=== PATIENT | male | born 1960 | race African-American/Black ===

== ENCOUNTER 2021-12-04 13:36 | Inpatient (IN) | payer OTHER ==
[2021-12-04 15:25] VITALS: BMI 26.9
[2021-12-04] MEDS ORDERED: NICOTINE 10 MG CARTRIDGE (INHALER) IH PRN (15:39)
[2021-12-04] MEDS ORDERED: IBUPROFEN 600 MG TABLET (FP) PO PRN (15:39)
[2021-12-04] MEDS ORDERED: DICYCLOMINE HCL 10 MG CAPSULE PO PRN (15:39)
[2021-12-04] MEDS ORDERED: ACETAMINOPHEN 325 MG TABLET (FP) PO PRN ×2 (15:39)
[2021-12-04] MEDS ORDERED: ONDANSETRON *ODT* 4 MG TABLET SL PRN (15:39)
[2021-12-04] MEDS ORDERED: METHOCARBAMOL 500 MG TABLET PO PRN (15:39)
[2021-12-04] MEDS ORDERED: MAG HYDROX/AL HYDROX/SIMETH 30 ML UNIT-DOSE CUP PO PRN (15:39)
[2021-12-04] MEDS ORDERED: NALOXONE HCL (KLOXXADO) 8 MG SPRAY NS PRN (15:39)
[2021-12-04] MEDS ORDERED: MAGNESIUM HYDROX 2400MG/30ML ORAL SUSPENSION 30 ML CUP PO PRN (15:39)
[2021-12-04] MEDS ORDERED: IBUPROFEN 400 MG TABLET (FP) PO PRN (15:39)
[2021-12-04] MEDS ORDERED: BENZOCAINE/MENTHOL (CHLORASEPTIC ) LOZENGE MM PRN (15:39)
[2021-12-04] MEDS ORDERED: MAGNESIUM CITRATE 300 ML BOTTLE PO PRN (15:39)
[2021-12-04] MEDS ORDERED: LOPERAMIDE HCL 2 MG CAPSULE PO PRN (15:39)
[2021-12-04] MEDS ORDERED: BISMUTH SUBSALICYLATE 262 MG/15 ML BTL PO PRN (15:39)
[2021-12-04] MEDS: hydrOXYzine PAMOATE 25 MG CAPSULE (FP) PO SCH ×2 (18:29→22:20)
[2021-12-04] MEDS: THIAMINE HCL 100 MG TABLET (FP) PO SCH (22:20)
[2021-12-04] MEDS: MELATONIN 5 MG TABLETS PO SCH (22:20)
[2021-12-05] MEDS: hydrOXYzine PAMOATE 25 MG CAPSULE (FP) PO SCH ×5 (06:26→22:36)
[2021-12-05] MEDS ORDERED: PRENATAL VITAMINS W/ FOLIC ACID TABLET (FP) PO SCH (10:00)
[2021-12-05 10:30] LABS: HEMATOCRIT 37.2 % (35.4-49); HEMOGLOBIN 12.6 GM/dL (11.7-16.9); MCH 31.1 pg (25.7-33.7); MCHC 33.7 g/dl (32.0-35.9); MEAN CELL VOLUME 92.4 fl (80-96); MEAN PLT VOLUME 7.7 fl (7.5-11.1); PLATELET COUNT 212 10^3/uL (134-434); RBC 4.03 M/mm3 (4.00-5.60); RDW 13.3 % (11.9-15.9); WHITE BLOOD COUNT 3.5 K/mm3 (4.0-10.0)
[2021-12-05 10:34] LABS: CALCIUM 8.7 mg/dL (8.5-10.1)
[2021-12-05 10:35] LABS: ALBUMIN 3.2 g/dl (3.4-5.0); BLOOD UREA NITROGEN 12.6 mg/dL (7-18)
[2021-12-05 10:38] LABS: CREATININE 0.8 mg/dL (0.55-1.3)
[2021-12-05 10:40] LABS: BILIRUBIN,TOTAL 0.3 mg/dL (0.2-1); TOT PROT 5.7 g/dl (6.4-8.2)
[2021-12-05] MEDS: THIAMINE HCL 100 MG TABLET (FP) PO SCH (22:36)
[2021-12-05] MEDS: MELATONIN 5 MG TABLETS PO SCH (22:36)
[2021-12-06] MEDS: hydrOXYzine PAMOATE 25 MG CAPSULE (FP) PO SCH (06:13)
[2021-12-06 09:56] VITALS: BP 134/71; PULSE 60; TEMP 96
== END 2021-12-06 11:05 | disposition home or self-care (01) | DRG 773 ==
LOC: YASAS 13:36 → Y3N 17:55
PROVIDERS: ADMIT Allergy & Immunology; ATTEND Surgery
PROC: HZ2ZZZZ Detoxification Services for Substance Abuse Treatment (ICD-10-PCS; principal; 2021-12-04)
DX: F11.23 Opioid dependence with withdrawal (principal); Z72.0 Tobacco use; Z28.310 Unvaccinated for COVID-19; Z59.01 Sheltered homelessness
CPT/HCPCS: 36415; 80053; 85027; 86780; 93005; 93010; C9803-CS; U0003; U0005

== ENCOUNTER 2022-02-22 12:04 | Inpatient (IN) | payer OTHER ==
[2022-02-22 12:45] VITALS: RESP 18; BMI 26.9
[2022-02-22] MEDS ORDERED: guaiFENesin 200 MG/10 ML 10 ML UNIT-DOSE CUPS PO PRN (18:51)
[2022-02-22] MEDS ORDERED: NICOTINE 10 MG CARTRIDGE (INHALER) IH PRN (18:51)
[2022-02-22] MEDS ORDERED: MAGNESIUM HYDROX 2400MG/30ML ORAL SUSPENSION 30 ML CUP PO PRN (18:51)
[2022-02-22] MEDS ORDERED: LOPERAMIDE HCL 2 MG CAPSULE PO PRN (18:51)
[2022-02-22] MEDS ORDERED: IBUPROFEN 400 MG TABLET (FP) PO PRN (18:51)
[2022-02-22] MEDS ORDERED: ACETAMINOPHEN 325 MG TABLET (FP) PO PRN (18:51)
[2022-02-22] MEDS ORDERED: MAG HYDROX/AL HYDROX/SIMETH 30 ML UNIT-DOSE CUP PO PRN (18:51)
[2022-02-22] MEDS ORDERED: MAGNESIUM CITRATE 300 ML BOTTLE PO PRN (18:51)
[2022-02-22] MEDS ORDERED: P-EPHED 60MG/TRIPROLIDI 2.5MG TABLET PO PRN (18:51)
[2022-02-22] MEDS: MELATONIN 5 MG TABLETS PO SCH (23:03)
[2022-02-22] MEDS: PRENATAL VITAMINS W/ FOLIC ACID TABLET (FP) PO SCH (23:03)
[2022-02-22] MEDS: hydrOXYzine PAMOATE 25 MG CAPSULE (FP) PO SCH (23:03)
[2022-02-22] MEDS: THIAMINE HCL 100 MG TABLET (FP) PO SCH (23:03)
[2022-02-23] MEDS: hydrOXYzine PAMOATE 25 MG CAPSULE (FP) PO SCH (06:53)
[2022-02-23] MEDS ORDERED: methaDONE HCL 40 MG DISPERSABLE TABLET PO SCH (09:00)
[2022-02-23] MEDS: methaDONE 80 MG, methaDONE 10 MG PO SCH (10:46)
[2022-02-23] MEDS: NICOTINE 7 MG/24 HOURS TOPICAL PATCH TD SCH (10:46)
[2022-02-23] MEDS: PRENATAL VITAMINS W/ FOLIC ACID TABLET (FP) PO SCH (10:46)
[2022-02-23 12:19] LABS: URINE APPEARANCE CLEAR; URINE BILIRUBIN NEGATIVE (NEGATIVE); URINE COLOR YELLOW; URINE GLUCOSE (UA) NEGATIVE (NEGATIVE); URINE KETONE NEGATIVE (NEGATIVE); URINE LEUK ESTERASE NEGATIVE (NEGATIVE); URINE NITRITE NEGATIVE (NEGATIVE); URINE PROTEIN NEGATIVE (NEGATIVE)
[2022-02-23 12:26] LABS: HEMOGLOBIN 11.7 GM/dL (11.7-16.9); MCH 30.6 pg (25.7-33.7); MCHC 33.6 g/dl (32.0-35.9); MEAN CELL VOLUME 91.3 fl (80-96); MEAN PLT VOLUME 7.9 fl (7.5-11.1); PLATELET COUNT 236 10^3/uL (134-434); RBC 3.83 M/mm3 (4.00-5.60); RDW 13.9 % (11.9-15.9); WHITE BLOOD COUNT 3.5 K/mm3 (4.0-10.0)
[2022-02-23 12:57] LABS: CALCIUM 8.2 mg/dL (8.5-10.1)
[2022-02-23 12:58] LABS: BLOOD UREA NITROGEN 11.5 mg/dL (7-18)
[2022-02-23 12:59] LABS: BILIRUBIN,TOTAL 0.5 mg/dL (0.2-1); CREATININE 0.7 mg/dL (0.55-1.3); SYPHILIS W/ RPR CONF NON-REACTIVE (NONREACTIVE)
[2022-02-23 13:00] LABS: TOT PROT 5.3 g/dl (6.4-8.2)
[2022-02-23] MEDS: THIAMINE HCL 100 MG TABLET (FP) PO SCH (21:33)
[2022-02-23] MEDS: MELATONIN 5 MG TABLETS PO SCH (21:33)
[2022-02-24] MEDS: methaDONE 80 MG, methaDONE 10 MG PO SCH (06:32)
[2022-02-24] MEDS: PRENATAL VITAMINS W/ FOLIC ACID TABLET (FP) PO SCH (10:23)
[2022-02-24] MEDS: POTASSIUM CHLORIDE ORAL LIQUID 20 MEQ/15 ML PO SCH ×2 (10:23→21:22)
[2022-02-24] MEDS: NICOTINE 7 MG/24 HOURS TOPICAL PATCH TD SCH (10:23)
[2022-02-24] MEDS: MELATONIN 5 MG TABLETS PO SCH (21:22)
[2022-02-24] MEDS: THIAMINE HCL 100 MG TABLET (FP) PO SCH (21:22)
[2022-02-25] MEDS: methaDONE 80 MG, methaDONE 10 MG PO SCH (06:38)
[2022-02-25] MEDS: PRENATAL VITAMINS W/ FOLIC ACID TABLET (FP) PO SCH (10:07)
[2022-02-25] MEDS: NICOTINE 7 MG/24 HOURS TOPICAL PATCH TD SCH (10:07)
[2022-02-25] MEDS: POTASSIUM CHLORIDE ORAL LIQUID 20 MEQ/15 ML PO SCH (10:07)
[2022-02-25] MEDS: MELATONIN 5 MG TABLETS PO SCH (21:23)
[2022-02-25] MEDS: THIAMINE HCL 100 MG TABLET (FP) PO SCH (21:23)
[2022-02-26] MEDS: methaDONE 80 MG, methaDONE 10 MG PO SCH (06:28)
[2022-02-26] MEDS: PRENATAL VITAMINS W/ FOLIC ACID TABLET (FP) PO SCH (10:10)
[2022-02-26] MEDS: NICOTINE 7 MG/24 HOURS TOPICAL PATCH TD SCH (10:11)
[2022-02-26] MEDS: THIAMINE HCL 100 MG TABLET (FP) PO SCH (21:25)
[2022-02-26] MEDS: MELATONIN 5 MG TABLETS PO SCH (21:25)
[2022-02-27] MEDS: methaDONE 80 MG, methaDONE 10 MG PO SCH (06:33)
[2022-02-27] MEDS: PRENATAL VITAMINS W/ FOLIC ACID TABLET (FP) PO SCH (09:55)
[2022-02-27] MEDS: NICOTINE 7 MG/24 HOURS TOPICAL PATCH TD SCH (09:55)
[2022-02-27] MEDS: THIAMINE HCL 100 MG TABLET (FP) PO SCH (21:01)
[2022-02-27] MEDS: MELATONIN 5 MG TABLETS PO SCH (21:01)
[2022-02-28] MEDS: methaDONE 80 MG, methaDONE 10 MG PO SCH (06:24)
[2022-02-28] MEDS: PRENATAL VITAMINS W/ FOLIC ACID TABLET (FP) PO SCH (10:31)
[2022-02-28] MEDS: NICOTINE 7 MG/24 HOURS TOPICAL PATCH TD SCH (10:31)
[2022-02-28] MEDS: THIAMINE HCL 100 MG TABLET (FP) PO SCH (21:12)
[2022-02-28] MEDS: hydrOXYzine PAMOATE 25 MG CAPSULE (FP) PO PRN (21:12)
[2022-02-28] MEDS: MELATONIN 5 MG TABLETS PO SCH (21:12)
[2022-03-01] MEDS: methaDONE 80 MG, methaDONE 10 MG PO SCH (06:05)
[2022-03-01] MEDS: PRENATAL VITAMINS W/ FOLIC ACID TABLET (FP) PO SCH (09:53)
[2022-03-01] MEDS: NICOTINE 7 MG/24 HOURS TOPICAL PATCH TD SCH (09:53)
[2022-03-01] MEDS: MELATONIN 5 MG TABLETS PO SCH (21:15)
[2022-03-01] MEDS: THIAMINE HCL 100 MG TABLET (FP) PO SCH (21:15)
[2022-03-02] MEDS: methaDONE 80 MG, methaDONE 10 MG PO SCH (06:23)
[2022-03-02] MEDS: NICOTINE 7 MG/24 HOURS TOPICAL PATCH TD SCH (10:19)
[2022-03-02] MEDS: PRENATAL VITAMINS W/ FOLIC ACID TABLET (FP) PO SCH (10:19)
[2022-03-02] MEDS: hydrOXYzine PAMOATE 25 MG CAPSULE (FP) PO PRN (21:46)
[2022-03-02] MEDS: THIAMINE HCL 100 MG TABLET (FP) PO SCH (21:46)
[2022-03-02] MEDS: MELATONIN 5 MG TABLETS PO SCH (21:46)
[2022-03-03] MEDS: methaDONE 80 MG, methaDONE 10 MG PO SCH (06:21)
[2022-03-03] MEDS: NICOTINE 7 MG/24 HOURS TOPICAL PATCH TD SCH (09:44)
[2022-03-03] MEDS: PRENATAL VITAMINS W/ FOLIC ACID TABLET (FP) PO SCH (09:44)
[2022-03-03] MEDS ORDERED: CALAMINE 8% TOPICAL LOTION 177 ML BOTTLE TP PRN (11:27)
[2022-03-03] MEDS: MELATONIN 5 MG TABLETS PO SCH (21:04)
[2022-03-03] MEDS: hydrOXYzine PAMOATE 25 MG CAPSULE (FP) PO PRN (21:04)
[2022-03-03] MEDS: THIAMINE HCL 100 MG TABLET (FP) PO SCH (21:04)
[2022-03-04] MEDS: methaDONE 80 MG, methaDONE 10 MG PO SCH (06:11)
[2022-03-04] MEDS: PRENATAL VITAMINS W/ FOLIC ACID TABLET (FP) PO SCH (09:56)
[2022-03-04] MEDS: NICOTINE 7 MG/24 HOURS TOPICAL PATCH TD SCH (09:57)
[2022-03-04] MEDS: THIAMINE HCL 100 MG TABLET (FP) PO SCH (21:00)
[2022-03-04] MEDS: hydrOXYzine PAMOATE 25 MG CAPSULE (FP) PO PRN (21:00)
[2022-03-04] MEDS: MELATONIN 5 MG TABLETS PO SCH (21:00)
[2022-03-05] MEDS: methaDONE 80 MG, methaDONE 10 MG PO SCH (06:26)
[2022-03-05] MEDS ORDERED: BENZOYL PEROXIDE 5% 60 GM GEL..GRAM. TP ONE (08:01)
[2022-03-05] MEDS: NICOTINE 7 MG/24 HOURS TOPICAL PATCH TD SCH (10:44)
[2022-03-05] MEDS: PRENATAL VITAMINS W/ FOLIC ACID TABLET (FP) PO SCH (10:44)
[2022-03-05] MEDS: hydrOXYzine PAMOATE 25 MG CAPSULE (FP) PO PRN (21:13)
[2022-03-05] MEDS: MELATONIN 5 MG TABLETS PO SCH (21:13)
[2022-03-05] MEDS: THIAMINE HCL 100 MG TABLET (FP) PO SCH (21:13)
[2022-03-06] MEDS: methaDONE 80 MG, methaDONE 10 MG PO SCH (05:58)
[2022-03-06] MEDS: PRENATAL VITAMINS W/ FOLIC ACID TABLET (FP) PO SCH (10:34)
[2022-03-06] MEDS: NICOTINE 7 MG/24 HOURS TOPICAL PATCH TD SCH (10:35)
[2022-03-06] MEDS: MELATONIN 5 MG TABLETS PO SCH (21:14)
[2022-03-06] MEDS: THIAMINE HCL 100 MG TABLET (FP) PO SCH (21:15)
[2022-03-07] MEDS: methaDONE 80 MG, methaDONE 10 MG PO SCH (06:21)
[2022-03-07] MEDS: PRENATAL VITAMINS W/ FOLIC ACID TABLET (FP) PO SCH (09:48)
[2022-03-07] MEDS: NICOTINE 7 MG/24 HOURS TOPICAL PATCH TD SCH (11:02)
[2022-03-07] MEDS: THIAMINE HCL 100 MG TABLET (FP) PO SCH (21:19)
[2022-03-07] MEDS: MELATONIN 5 MG TABLETS PO SCH (21:19)
[2022-03-07] MEDS: hydrOXYzine PAMOATE 25 MG CAPSULE (FP) PO PRN (21:19)
[2022-03-08] MEDS ORDERED: methaDONE HCL 40 MG DISPERSABLE TABLET ONE (06:28)
[2022-03-08] MEDS: methaDONE 80 MG, methaDONE 10 MG PO SCH (06:33)
[2022-03-08] MEDS: PRENATAL VITAMINS W/ FOLIC ACID TABLET (FP) PO SCH (11:11)
[2022-03-08] MEDS: NICOTINE 7 MG/24 HOURS TOPICAL PATCH TD SCH (11:12)
[2022-03-08] MEDS: MELATONIN 5 MG TABLETS PO SCH (21:08)
[2022-03-08] MEDS: THIAMINE HCL 100 MG TABLET (FP) PO SCH (21:09)
[2022-03-08] MEDS: hydrOXYzine PAMOATE 25 MG CAPSULE (FP) PO PRN (21:09)
[2022-03-09] MEDS: methaDONE 80 MG, methaDONE 10 MG PO SCH (06:25)
[2022-03-09] MEDS: NICOTINE 7 MG/24 HOURS TOPICAL PATCH TD SCH (09:53)
[2022-03-09] MEDS: PRENATAL VITAMINS W/ FOLIC ACID TABLET (FP) PO SCH (09:53)
[2022-03-09] MEDS: THIAMINE HCL 100 MG TABLET (FP) PO SCH (21:11)
[2022-03-09] MEDS: MELATONIN 5 MG TABLETS PO SCH (21:11)
[2022-03-09] MEDS: hydrOXYzine PAMOATE 25 MG CAPSULE (FP) PO PRN (21:11)
[2022-03-10] MEDS: methaDONE 80 MG, methaDONE 10 MG PO SCH (06:25)
[2022-03-10] MEDS: PRENATAL VITAMINS W/ FOLIC ACID TABLET (FP) PO SCH (10:31)
[2022-03-10] MEDS: NICOTINE 7 MG/24 HOURS TOPICAL PATCH TD SCH (10:31)
[2022-03-10] MEDS: MELATONIN 5 MG TABLETS PO SCH (21:10)
[2022-03-10] MEDS: hydrOXYzine PAMOATE 25 MG CAPSULE (FP) PO PRN (21:10)
[2022-03-10] MEDS: THIAMINE HCL 100 MG TABLET (FP) PO SCH (21:10)
[2022-03-11] MEDS: methaDONE 80 MG, methaDONE 10 MG PO SCH (06:29)
[2022-03-11] MEDS: PRENATAL VITAMINS W/ FOLIC ACID TABLET (FP) PO SCH (10:00)
[2022-03-11] MEDS: NICOTINE 7 MG/24 HOURS TOPICAL PATCH TD SCH (10:00)
[2022-03-11] MEDS: hydrOXYzine PAMOATE 25 MG CAPSULE (FP) PO PRN (21:07)
[2022-03-11] MEDS: MELATONIN 5 MG TABLETS PO SCH (21:07)
[2022-03-11] MEDS: THIAMINE HCL 100 MG TABLET (FP) PO SCH (21:07)
[2022-03-12] MEDS: methaDONE 80 MG, methaDONE 10 MG PO SCH (06:26)
[2022-03-12] MEDS: PRENATAL VITAMINS W/ FOLIC ACID TABLET (FP) PO SCH (09:57)
[2022-03-12] MEDS: NICOTINE 7 MG/24 HOURS TOPICAL PATCH TD SCH (09:57)
[2022-03-12] MEDS: MELATONIN 5 MG TABLETS PO SCH (21:01)
[2022-03-12] MEDS: THIAMINE HCL 100 MG TABLET (FP) PO SCH (21:01)
[2022-03-12] MEDS: hydrOXYzine PAMOATE 25 MG CAPSULE (FP) PO PRN (21:01)
[2022-03-13] MEDS: methaDONE 80 MG, methaDONE 10 MG PO SCH (06:21)
[2022-03-13] MEDS: NICOTINE 7 MG/24 HOURS TOPICAL PATCH TD SCH (10:37)
[2022-03-13] MEDS: PRENATAL VITAMINS W/ FOLIC ACID TABLET (FP) PO SCH (10:37)
[2022-03-13] MEDS: MELATONIN 5 MG TABLETS PO SCH (21:06)
[2022-03-13] MEDS: hydrOXYzine PAMOATE 25 MG CAPSULE (FP) PO PRN (21:06)
[2022-03-13] MEDS: THIAMINE HCL 100 MG TABLET (FP) PO SCH (21:06)
[2022-03-14] MEDS: methaDONE 80 MG, methaDONE 10 MG PO SCH (05:59)
[2022-03-14] MEDS: PRENATAL VITAMINS W/ FOLIC ACID TABLET (FP) PO SCH (09:43)
[2022-03-14] MEDS: NICOTINE 7 MG/24 HOURS TOPICAL PATCH TD SCH (09:45)
[2022-03-14] MEDS: MELATONIN 5 MG TABLETS PO SCH (21:05)
[2022-03-14] MEDS: hydrOXYzine PAMOATE 25 MG CAPSULE (FP) PO PRN (21:05)
[2022-03-14] MEDS: THIAMINE HCL 100 MG TABLET (FP) PO SCH (21:05)
[2022-03-15] MEDS: methaDONE 80 MG, methaDONE 10 MG PO SCH (06:29)
[2022-03-15] MEDS: NICOTINE 7 MG/24 HOURS TOPICAL PATCH TD SCH (10:07)
[2022-03-15] MEDS: PRENATAL VITAMINS W/ FOLIC ACID TABLET (FP) PO SCH (10:07)
[2022-03-15] MEDS: THIAMINE HCL 100 MG TABLET (FP) PO SCH (21:18)
[2022-03-15] MEDS: MELATONIN 5 MG TABLETS PO SCH (21:18)
[2022-03-15] MEDS: hydrOXYzine PAMOATE 25 MG CAPSULE (FP) PO PRN (21:19)
[2022-03-15] MEDS: TOLNAFTATE 1% CREAM 15 GM TUBE TP SCH (21:19)
[2022-03-16] MEDS: methaDONE 80 MG, methaDONE 10 MG PO SCH (06:11)
[2022-03-16] MEDS: PRENATAL VITAMINS W/ FOLIC ACID TABLET (FP) PO SCH (09:37)
[2022-03-16] MEDS: NICOTINE 7 MG/24 HOURS TOPICAL PATCH TD SCH (09:38)
[2022-03-16] MEDS: TOLNAFTATE 1% CREAM 15 GM TUBE TP SCH ×2 (09:38→22:06)
[2022-03-16] MEDS: MELATONIN 5 MG TABLETS PO SCH (21:10)
[2022-03-16] MEDS: THIAMINE HCL 100 MG TABLET (FP) PO SCH (21:10)
[2022-03-17] MEDS: methaDONE 80 MG, methaDONE 10 MG PO SCH (06:21)
[2022-03-17] MEDS: PRENATAL VITAMINS W/ FOLIC ACID TABLET (FP) PO SCH (10:00)
[2022-03-17] MEDS: NICOTINE 7 MG/24 HOURS TOPICAL PATCH TD SCH (10:00)
[2022-03-17] MEDS: TOLNAFTATE 1% CREAM 15 GM TUBE TP SCH ×2 (10:01→21:19)
[2022-03-17] MEDS: MELATONIN 5 MG TABLETS PO SCH (21:18)
[2022-03-17] MEDS: THIAMINE HCL 100 MG TABLET (FP) PO SCH (21:18)
[2022-03-17] MEDS: hydrOXYzine PAMOATE 25 MG CAPSULE (FP) PO PRN (21:19)
[2022-03-18] MEDS: methaDONE 80 MG, methaDONE 10 MG PO SCH (06:22)
[2022-03-18 07:12] VITALS: TEMP 97.5
[2022-03-18] MEDS: NICOTINE 7 MG/24 HOURS TOPICAL PATCH TD SCH (09:44)
[2022-03-18] MEDS: PRENATAL VITAMINS W/ FOLIC ACID TABLET (FP) PO SCH (09:44)
[2022-03-18] MEDS: TOLNAFTATE 1% CREAM 15 GM TUBE TP SCH ×2 (12:32→21:05)
[2022-03-18] MEDS: hydrOXYzine PAMOATE 25 MG CAPSULE (FP) PO PRN (21:04)
[2022-03-18] MEDS: MELATONIN 5 MG TABLETS PO SCH (21:04)
[2022-03-18] MEDS: THIAMINE HCL 100 MG TABLET (FP) PO SCH (21:04)
[2022-03-19] MEDS: methaDONE 80 MG, methaDONE 10 MG PO SCH (06:00)
[2022-03-19 07:30] VITALS: BP 111/69; PULSE 71
[2022-03-19] MEDS: TOLNAFTATE 1% CREAM 15 GM TUBE TP SCH (09:22)
[2022-03-19] MEDS: NICOTINE 7 MG/24 HOURS TOPICAL PATCH TD SCH (09:22)
[2022-03-19] MEDS: PRENATAL VITAMINS W/ FOLIC ACID TABLET (FP) PO SCH (09:22)
== END 2022-03-19 09:35 | disposition home or self-care (01) | DRG 772 ==
LOC: YASAS 12:04 → Y3W 19:58
PROVIDERS: ADMIT Allergy & Immunology; ATTEND Psychiatry & Neurology Pain Medicine
PROC: HZ42ZZZ Group Counseling for Substance Abuse Treatment, Cognitive-Behavioral (ICD-10-PCS; principal; 2022-02-22)
DX: F11.20 Opioid dependence, uncomplicated (principal); F16.20 Hallucinogen dependence, uncomplicated; F17.210 Nicotine dependence, cigarettes, uncomplicated; B35.1 Tinea unguium; R60.0 Localized edema; S40.811A Abrasion of right upper arm, initial encounter; W01.198A Fall on same level from slipping, tripping and stumbling with subsequent striking against other object, initial encounter; Y93.9 Activity, unspecified; Y92.9 Unspecified place or not applicable; Z59.00 Homelessness unspecified; Z28.9 Immunization not carried out for unspecified reason
CPT/HCPCS: 36415; 80053; 81003; 82962; 83036; 84132; 85027; 86780; 86803; 87811; 90882-GT; C9803-CS; U0003; U0005

== ENCOUNTER 2022-04-02 19:43 | Emergency (ER) | payer OTHER ==
[2022-04-02 20:19] VITALS: BP 118/68; PULSE 78; RESP 18; TEMP 97.9; BMI 26.9
== END 2022-04-02 22:51 | disposition home or self-care (01) ==
LOC: JER 19:43
DX: U07.1 COVID-19 (principal)
CPT/HCPCS: 71045-TC-FY; 99283-25